=== PATIENT | female | born 1990 | race Caucasian/White ===

== ENCOUNTER 2020-11-29 03:07 | Emergency (ER) | payer MEDICAID ==
[~2020-11-29] VITALS: Ht 170.2 cm; Wt 168.0 kg
[2020-11-29 03:23] VITALS: BP 159/90
[2020-11-29] MEDS ORDERED: HYDROCODONE/ACETAMINOPHEN 5/325MG TABLET PO ONE (04:15)
[2020-11-29] MEDS ORDERED: TETANUS, DIPHTHERIA, PERTUSSIS VAC/PF 0.5ML (>7YR OLD) IM ONE (04:15)
[2020-11-29] MEDS ORDERED: BACITRACIN ZINC OINT UDPKT TOP ONE (04:15)
[2020-11-29] MEDS ORDERED: HYDR-4001 PO (06:27)
[2020-11-29] MEDS ORDERED: CEPH500T PO (06:27)
[2020-11-29] MEDS ORDERED: BO1 TP (06:27)
== END 2020-11-29 07:07 | disposition home or self-care (01) ==
LOC: ER 03:07
DX: S81.831A Puncture wound without foreign body, right lower leg, initial encounter (principal); W34.09XA Accidental discharge from other specified firearms, initial encounter; Y93.89 Activity, other specified; Y92.89 Other specified places as the place of occurrence of the external cause; Y99.8 Other external cause status; Z98.890 Other specified postprocedural states
CPT/HCPCS: 73562; 73590; 90471; 90715; 99284

== ENCOUNTER 2022-12-16 09:23 | Emergency (ER) | payer MEDICAID ==
[~2022-12-16] VITALS: Ht 167.6 cm; Wt 172.0 kg
[~2022-12-16 09:23] MED LIST: BO1 TP; CEPH500T PO; HYDR-4001 PO
[2022-12-16 09:25] VITALS: O2SAT 99
[2022-12-16] MEDS ORDERED: IBUPROFEN 600MG TABLET PO ONE (10:30)
[2022-12-16 11:47] VITALS: BP 132/78; PULSE 86; RESP 20; TEMP 98.6
== END 2022-12-16 12:23 | disposition home or self-care (01) ==
LOC: ER 09:23
DX: M79.672 Pain in left foot (principal); I10 Essential (primary) hypertension; Z98.890 Other specified postprocedural states
CPT/HCPCS: 73630; 99283